=== PATIENT | female | born 1995 | race Caucasian/White ===

== ENCOUNTER 2019-02-12 20:39 | Emergency (ER) | payer BC, OTHER ==
[2019-02-12 21:06] VITALS: BP 148/55
[2019-02-12] MEDS ORDERED: Amoxicillin/Clavulanate SUSP* 400 MG/5 ML BTL PO ONE (21:30)
--- NOTE | 2019-02-12 21:41 | UC ---
Dental HPI - HPI Summary HPI Summary: Patient presents to urgent care reporting discomfort in the right front tooth. Patient with a history of implant for this tooth. Patient states that fell out last week and she had put back in by dentist on . Patient states since that time she's had progressive pain. Patient also with little swelling of her upper lip towards her nose. Patient denies nausea vomiting. Patient spoke to the dentist stenocaptioner today who told her take 2 ibuprofen 1 Tylenol which she did to help for about 2 hours. No nausea or vomiting. No ear pain. No swelling in her mouth or difficulty swallowing. Patient states she's not . Medications reviewed this visit. - History of Current Complaint Chief Complaint: UCDentalProblem Stated Complaint: DENTAL PAIN Time Seen by Provider: 02/12/19 21:12 Hx Obtained From: Patient Hx Last Menstrual Period: 02/06/19 ?: No Onset/Duration: Gradual Onset Severity: Severe Pain Intensity: 9 Pain Scale Used: 0-10 Numeric - Allergies/Home Medications Allergies/Adverse Reactions: Allergies Allergy/AdvReac Type Severity Reaction Status Date / Time No Known Allergies Allergy Verified 02/12/19 21:06 Home Medications: Home Medications Cetirizine* [ZyrTEC 10 MG TAB*] 1 tab DAILY 02/12/19 [History Confirmed 02/12/19 ] Ranitidine TAB (NF) [Zantac TAB (NF)] 150 mg PO DAILY 02/12/19 [History Confirmed 02/12/19] PMH/Surg Hx/FS Hx/Imm Hx Previously Healthy: Yes - Surgical History Surgical History: Yes Surgery Procedure, Year, and Place: ear tubes - Family History Known Family History: Positive: Cardiac Disease, Non-Contributory - Social History Occupation: Student Lives: Dormitory/Roommates Alcohol Use: Occasionally Substance Use Type: None Smoking Status (MU): Never Smoked Tobacco Review of Systems All Other Systems Reviewed And Are Negative: Yes Constitutional: Positive: Negative Skin: Positive: Negative Eyes: Positive: Negative ENT: Positive: Dental Pain Physical Exam - Summary Physical Exam Summary: Vital Signs Reviewed: Yes A+Ox3, no distress Eyes: Conjunctiva Clear, BOLA. EOM intact and full ENT: Hearing grossly normal TM x 2 clear, turbinates wnl, + TTP #8 with palpation, mild edema upper lid at nares, mmoist, uvula midline, no exudate, no erythema Neck: Positive: Suple Respiratory: Positive: No respiratory distress, No accessory muscle use + CTA throughout no w/r Cardiovascular: RRR nl s1, s2 no m/r CBT <2 sec abd soft + BS nt/nd no guarding, no distension Musculoskeletal Exam: OLIVA x 4 without difficulty Strength Intact, ROM Intact Neurological: Positive: Alert, + sensation throughout Psychological: Positive: Normal Response To Family Skin: Positive: no rash, no ecchymosis Triage Information Reviewed: Yes Vital Signs: Initial Vital Signs Temp 98.4 F 02/12/19 20:56 Pulse 66 02/12/19 20:56 Resp 16 02/12/19 20:56 BP 148/55 02/12/19 20:56 Pulse Ox 100 02/12/19 20:56 Dental Complaint Course/Dx - Course Course Of Treatment: Patient presents to urgent care reporting progressive increasing pain over her # 8 tooth. No drainage. Mild no palpation. Patient states this is an implant that she had work done on . No fevers or chills. On exam vital signs are stable. Patient with discomfort with palpation. Patient with some mild edema of her upper lip area towards her nares. Patient with tenderness the right tooth. We'll start patient on antibiotics. Swish and spit. Motrin and Tylenol. Patient to call her dentist on Thursday. Patient comfortable with plan. BP mildly elevated - pt with pain- related to presentation - Differential Dx/Diagnosis Provider Diagnosis: Dental infection Discharge - Sign-Out/Discharge Documenting (check all that apply): Patient Departure All imaging exams completed and their final reports reviewed: No Studies - Discharge Plan Condition: Stable Disposition: HOME Prescriptions: Amoxicillin/Clavulanate SUSP* [Augmentin SUSP*] 800 mg PO Q12H #1 btl Patient Education Materials: Toothache (ED) Referrals: No Primary Care Phys,NOPCP [Primary Care Provider] - Additional Instructions: - Okay to alternate ibuprofen (Advil, Motrin) 600mg and Tylenol 1000mg every 3 hours for pain. Take with food. Do NOT take for more than 4-5 days -Swish and spit with warm salt water 3-4 times a day -Take antibiotics as prescribed until gone -Stay well hydrated - frequent sips of cold fluids will be soothing to your throat (popsicles, jello, ice cream, ice water) -Contact your dentist on Thursday to schedule a follow-up appointment. If you develop swelling inside your mouth, difficulty with chewing or any other concerns it is recommended you go to the emergency department for further management - Billing Disposition and Condition Condition: STABLE Disposition: Home
== END 2019-02-12 21:47 | disposition home or self-care (01) ==
LOC: UCCORT 20:39
DX: K04.7 Periapical abscess without sinus (principal); R03.0 Elevated blood-pressure reading, without diagnosis of hypertension
CPT/HCPCS: 99212; G0463